=== PATIENT | female | born 1995 | race Caucasian/White ===

== ENCOUNTER 2020-11-24 10:35 | Emergency (ER) | payer OTHER ==
[~2020-11-24] VITALS: Ht 157.5 cm; Wt 52.2 kg
[~2020-11-24 10:35] MED LIST: N
== END 2020-11-24 13:51 | disposition home or self-care (01) ==
LOC: ER 10:35
DX: J03.90 Acute tonsillitis, unspecified (principal)

== ENCOUNTER 2022-08-25 19:03 | Outpatient (CLI) | payer OTHER | END 2022-08-25 19:19 | disposition home or self-care (01) | LOC: NST 19:03 | PROVIDERS: ATTEND Obstetrics & Gynecology Gynecology | DX: Z34.83 Encounter for supervision of other normal pregnancy, third trimester (principal) ==

== ENCOUNTER 2022-08-27 12:34 | Inpatient (IN) | payer OTHER ==
[~2022-08-27] VITALS: Ht 152.4 cm; Wt 68.0 kg
[2022-09-07] MEDS ORDERED: FOLIC ACID0.8 M1 PO (06:47)
[2022-09-10] MEDS ORDERED: KETO10TA2 PO (07:49)
[2022-09-10] MEDS ORDERED: OXYC1TAB9 PO (07:49)
[2022-09-10] MEDS ORDERED: PRENATE ENHANC1 EACH PO (07:50)
[2022-09-10] MEDS ORDERED: FERROUS SULFAT325 M1 PO (07:50)
== END 2022-09-10 12:18 | disposition home or self-care (01) | DRG 788 ==
LOC: OB/GYN 09-02 12:31 → LDR 09-07 05:35 → OB/GYN 09-07 05:35
PROVIDERS: ADMIT Obstetrics & Gynecology; ATTEND Obstetrics & Gynecology
PROC: 4A1HXCZ Monitoring of Products of Conception, Cardiac Rate, External Approach (ICD-10-PCS; 2022-09-07)
PROC: 10D00Z1 Extraction of Products of Conception, Low, Open Approach (ICD-10-PCS; principal; 2022-09-07 20:00)
DX: O62.1 Secondary uterine inertia (principal); Z3A.39 39 weeks gestation of pregnancy; Z37.0 Single live birth; Z20.822 Contact with and (suspected) exposure to COVID-19

== ENCOUNTER 2022-10-18 00:28 | Emergency (ER) | payer OTHER ==
[~2022-10-18] VITALS: Ht 160 cm; Wt 59.0 kg
[~2022-10-18 00:28] MED LIST changes: +FERROUS SULFAT325 M1 PO; +FOLIC ACID0.8 M1 PO; +KETO10TA2 PO; +OXYC1TAB9 PO; +PRENATE ENHANC1 EACH PO
== END 2022-10-18 04:29 | disposition home or self-care (01) ==
LOC: ER 00:28
DX: B34.9 Viral infection, unspecified (principal); Z20.822 Contact with and (suspected) exposure to COVID-19; Z88.0 Allergy status to penicillin